=== PATIENT | male | born 1985 | race Caucasian/White ===

== ENCOUNTER 2020-09-17 19:42 | Emergency (ER) | payer OTHER ==
[~2020-09-17] VITALS: Ht 172.7 cm; Wt 72.7 kg
[2020-09-17] MEDS ORDERED: MASOPHEN500 MG PO ×2 (19:51→19:52)
[2020-09-17 21:01] VITALS: BP 125/85
== END 2020-09-17 21:01 | disposition home or self-care (01) ==
LOC: ED 19:42
DX: S61.412A Laceration without foreign body of left hand, initial encounter (principal); Z86.16 Personal history of COVID-19; Z79.1 Long term (current) use of non-steroidal anti-inflammatories (NSAID); W26.8XXA Contact with other sharp object(s), not elsewhere classified, initial encounter; Y92.094 Garage of other non-institutional residence as the place of occurrence of the external cause
CPT/HCPCS: 90715